=== PATIENT | female | born 1975 | race Caucasian/White ===

== ENCOUNTER → 2020-12-05 12:40 | Outpatient (CLI) | payer OTHER, SELFPAY ==
--- NOTE | ~2020-12-05 | MM_ITS ---
EXAMINATION: MM screening brennon BI w cesar HISTORY: Screening TECHNIQUE: Craniocaudal and mediolateral oblique 3-D tomosynthesis images were obtained and synthetic 2-D images were generated. CAD analysis was submitted and interpreted. COMPARISON: Comparison to multiple prior studies sequentially, with oldest reviewed study dated 08/29. BREAST PARENCHYMAL COMPOSITION: The breasts are heterogeneously dense, which may obscure small masses . FINDINGS: There is no evidence of suspicious mass, calcification, or architectural distortion to sugg est malignancy in either breast. There has been no suspicious interval change. IMPRESSION: 1. No mammographic evidence of malignancy. 2. Recommend routine screening mammography in one year. BI-RADS Category 1: Negative Reviewed, dictated and finalized at location A.
== END ==
PROVIDERS: Visit Provider Obstetrics & Gynecology
DX: Z12.31 Encounter for screening mammogram for malignant neoplasm of breast (principal)
CPT/HCPCS: 77063; 77067

== ENCOUNTER 2021-08-29 15:34 | Outpatient (CLI) | payer OTHER, SELFPAY | END 2021-08-29 15:35 | disposition home or self-care (01) | PROVIDERS: PCP Family Medicine; Visit Provider Obstetrics & Gynecology | DX: Z01.812 Encounter for preprocedural laboratory examination (principal); D21.9 Benign neoplasm of connective and other soft tissue, unspecified; N92.0 Excessive and frequent menstruation with regular cycle; N93.9 Abnormal uterine and vaginal bleeding, unspecified | CPT/HCPCS: 36415; 86850; 86900; 86901; 87086 ==

== ENCOUNTER 2021-09-04 00:31 | Day surgery (SDC) | payer OTHER, SELFPAY ==
[2021-08-24 14:16] VITALS: BMI 24.3
--- NOTE | 2021-08-24 14:24 | PC.NURSE ---
Report to the Outpatient Waiting Room, entrance under the green pavilion located off [facility], at time _0900_ on date _09-04-2021_. OR Time: _1100_. - You and your visitor will be asked a series of questions to screen for COVID 19 for your protection. - A mask is required within the hospital. Preoperative COVID Testing Requirements: No COVID Test needed if: (proof is required; if not received patient will have Rapid Test prior to entry) - Patient has received COVID Vaccine at least 14 days prior to procedure date or - Patient has positive COVID test result within last 90 days of surgery date. COVID Test needed if above criteria is not met If not COVID vaccinated a COVID test must be conducted within 72 hours of surgery and patient is asked to isolate self from time of testing until procedure. You will go to the [email or web address] Testing Site for your COVID testing. The [email or web address] Testing site is located at the corner of [address] [facility]. You will only be called if COVID results are positive and your surgeon may reschedule your elective surgery date. Patients may have clear liquids (water, carbonated beverages, clear teas, apple juice) until 3 hours prior to surgery with a maximum of 20 ounces. - No food from midnight until time of surgery - Infants may have breast milk until 4 hours before surgery, formula 6 hours prior to surgery. - Children will be allowed to drink immediately following surgery. If applicable, please bring a bottle or sippy cup to assist with drinking. Juice, water, soda, and popsicles are readily available. For infants on formula, please bring formula the day of surgery. Pacifiers are allowed. Take the following medications with a SIP of water the morning of surgery: Medications to discontinue per physician Date to take last dose Please no make-up, nail sao tomean, hairspray, perfume, deodorant, or body powder the day of surgery. No jewelry (including any body piercings) or valuables the day of surgery, leave them at home. Please take a shower or bath the night before, or the morning of, surgery with an antibacterial soap. Wear comfortable, loose fitting clothing. Children are encouraged to wear pajamas. - Jewelry must be removed prior to entering the operating room. Rings and piercings that are not removed may be cut off. - The hospital will not accept responsibility for valuables. - Please leave all valuables, including medications, at home the day of surgery. If you are going home after surgery, a licensed rail car driver must drive you home. - NO public transportation without another adult. - We recommend that an adult stay with you for 24 hours following discharge. - We also recommend that you do not drive, make important decision, drink alcoholic beverages, or take any drugs that were not prescribed by your health care provider for at least 24 hours after your discharge time. For Pediatric surgeries, we recommend two adults accompany the child home (only one inside the building at this time). One visitor will be allowed to accompany the patient into the hospital. Patients visitor will be instructed to remain with patient at all times or leave the building. We will allow the visitor to come back to the postoperative area when patient is ready. Follow any additional instructions given to you from your surgeon. Telephone instructions given to ___Patient and asked if any additional questions and then verbalized understanding. Patient advised to call surgeon office or pre surgery nurse liaison [phone] if any additional questions.
--- NOTE | 2021-09-03 07:44 | PM.IMHP ---
H&P: HPI History of Present Illness Date/Time: 09/03/21 07:44 46yo undergoing hysterectomy for fibroids. Also notes JACKSON Chief Complaint: JACKSON Review of Systems Review of Systems: All systems reviewed & are unremarkable except as noted in HPI and below PMFSH Past Medical History Medical History BMI 23.0-23.9, adult Family History Family History Father Hypertension Malignant neoplasm of prostate Grandparent Family history of type 2 diabetes mellitus Other Diabetes mellitus Family history of cardiovascular disease Social History Social History Smoking status: Never smoker Alcohol intake: current Substance use: never Substance use type: does not use Spiritual care concerns: No Meds Home Medications and Allergies Home Medications Medication Instructions Recorded Confirmed Type progesterone micronized 200 mg PO DAILY 08/24/21 08/24/21 History Allergies Allergy/AdvReac Type Severity Reaction Status Date / Time No Known Allergies Allergy Verified 08/24/21 14:16 Exam Narrative: NAD A+O x3 normal breathing + urethral mobility Assessment and Plan Assessment and plan (1) JACKSON (stress urinary incontinence, female): Code(s): N39.3 - Stress incontinence (female) (male) Status: Acute Assessment and Plan: urethral sling
[2021-09-04] VITALS (12 sets, daily range): BP systolic 78–119; BP diastolic 44–81; PULSE 54–81; RESP 12–19; TEMP 36.2–37.2; O2SAT 94–100
--- NOTE | 2021-09-04 07:09 | WPDHPUPDATE1 ---
History and Physical Update Update Date/Time: 09/04/21 07:09 History and Physical has been reviewed, including an updated exam of the patient. There are NO changes in the patient's condition. Risks, benefits, and alternatives have been discussed and questions answered. Patient agrees to proceed with procedure.
[2021-09-04] MEDS: ACETAMINOPHEN 500 MG TABLET 1000 MG PO (09:50)
[2021-09-04] MEDS: LACTATED RINGERS 1,000 ML 30 ML IV CONT ×2 (10:00→14:59)
[2021-09-04] MEDS: KETOROLAC 15 MG/ML VIAL (*BKC) IV PUSH (10:25)
--- NOTE | 2021-09-04 10:25 | P.PNAN_ITS ---
Anes - Initial Pre Proc Eval Procedure: Operation Date: 09/04/21 11:00 Proposed Procedures p Total Laparoscopic Hysterectomy with Bilateral Salpingo-Oophorectomy - Phoenix Fields MD s Urethral Sling - Tani Pandey MD Date/Time: 09/04/21 10:25 Surgeon: Phoenix Fields MD Pre Op Diagnosis: uterine leiomyoma, stress incontinence Patient Data Age: 46 Gender: F Height: 1.68 m Weight: 67.8 kg Last Vital Signs Temp 36.2 C L 09/04/21 10:20 Pulse 71 09/04/21 10:20 Resp 16 09/04/21 10:20 BP 119/52 L 09/04/21 10:20 Pulse Ox 100 09/04/21 10:20 Allergies Allergy/AdvReac Type Severity Reaction Status Date / Time No Known Allergies Allergy Verified 09/04/21 09:25 Home Medications Medication Instructions Recorded Confirmed Type progesterone micronized 200 mg PO DAILY 08/24/21 09/04/21 History Patient hx anesthesia problems: none Family hx anesthesia problems: none Results Review: All pre-operative results and documents have been reviewed as part of the pre-operative evaluation. FOR[facility]LY [facility] Past Medical History Medical History BMI 23.0-23.9, adult Family History Family History Father Hypertension Malignant neoplasm of prostate Grandparent Family history of type 2 diabetes mellitus Other Diabetes mellitus Family history of cardiovascular disease Social History Social History Smoking status: Never smoker Alcohol intake: current Substance use: never Substance use type: does not use Living arrangements: with family Spiritual care concerns: No Anes - Eval Final PreProcedure Day of Procedure 09/04/21 10:25 Patient weight: normal Heart: regular rate and rhythm Lungs: clear to auscultation and normal air movement Airway: Mallampati scale class II Neurological: alert and oriented Last oral intake: >/= 8 hours ASA classification: II Emergent: no Anesthetic plan: proceed Anesthesia type and monitoring: general ETT Results Review: All pre-operative results and documents have been reviewed as part of the pre-operative evaluation. Informed Consent: The patient's anesthetic plan and its attendant risks and benefits were discussed with the patient/family/POA. Questions were solicited and answers provided to the satisfaction of the patient/family/POA.
--- NOTE | 2021-09-04 10:54 | WPDHPUPDATE1 ---
History and Physical Update Update Date/Time: 09/04/21 10:54 History and Physical has been reviewed, including an updated exam of the patient. There are NO changes in the patient's condition. Risks, benefits, and alternatives have been discussed and questions answered. Patient agrees to proceed with procedure.
[2021-09-04] MEDS: SCOPOLAMINE 1.5 MG PATCH TRANSDERM (11:41)
[2021-09-04] MEDS: ceFAZolin 2 GM/D5W 50 ML 2 GM/50 ML BAG IVPB (11:43)
--- NOTE | 2021-09-04 13:58 | W.PM.PROC2 ---
Procedure Note - Detailed Date of Procedure 09/04/21 Pre-op Diagnosis uterine leiomyoma, stress incontinence Post-op Diagnosis Same Procedure Performed Total laparoscopic hysterectomy and bilateral salpingo-oophorectomy. Surgeon Phoenix Fields MD Anesthesia General Findings 15 cm uterus, large myomas, normal appearing tubes and ovaries, normal vulva, vagina, cervix. Description of Procedure This patient was taken to the operating room. She was prepped and draped in the dorsal lithotomy position after induction of general anesthesia. The uterine manipulator and Cristy cup were placed. This was done with a speculum and tenaculum. The speculum was placed. The cervix was grasped with a tenaculum. The stay sutures were placed at 3 and 9:00 a.m.. The stay sutures of 0 Vicryl were brought through the appropriately sized Cristy cup. The tip of the ZENA manipulator was placed in the intrauterine cavity. The cup was slid into place around the cervix and into the fornices. It was locked into place. The sutures were then wrapped around the handle and tied under tension. A 5 mm skin incision was made in the left upper quadrant the abdomen. A 5 mm trocar was inserted into the intrauterine cavity under direct visualization of the scope. Pneumoperitoneum was achieved. A left lower quadrant 11 mm incision was made with scalpel. An 11 mm trocar was inserted into the anterior abdominal cavity under direct visualization the scope. A 5 mm infraumbilical incision was made with a scalpel and a 5 mm trocar was inserted the intra-abdominal cavity under direct visualization of the scope. Bilateral ureteral lysis was performed. This was done from the pelvic brim down to the uterine artery. This was done with careful dissection using sharp and blunt dissection. The infundibulopelvic ligaments were isolated after identification of the ureters bilaterally. These infundibulopelvic ligaments were cauterized and transected with LigaSure cautery. The para ovarian tissue was cauterized and transected with LigaSure cautery bilaterally. Moving around the ovary into the broad ligament the tissue was cauterized transected with LigaSure cautery. The round ligaments were cauterized transected with LigaSure cautery this was all done in a bilateral fashion. In a stepwise fashion along the lateral aspects of the uterus the round ligament and broad ligaments were cauterized transected down to the level of the uterine arteries. A bladder flap was created in the bladder was moved distally to the end of the cervix and over the Cristy cup. The bilateral uterine arteries were cauterized and transected. Colpotomy was then performed. In a circumferential fashion the vagina was transected using unipolar cautery. The incision was made down on the Cristy cup. a 4th trocar was placed in the right lower quadrant. This was placed through a 5 mm skin incision made with scalpel. It was done under direct visualization the scope. This site was used to manipulate the uterus and bifurcate the uterus. The removed piece of the uterus from the right side was then cut also. A fibroid was removed from it. These too loose pieces were then tagged with sutures. Surgical clips were placed on the sutures in the surgical clipped sutures were placed in the vagina. The uterus, cervix, fallopian tubes , fibroids and ovaries were taken out through the vagina. A pneumo occluder was placed in the vagina. The vaginal cuff was closed with a 0 V lock suture in a running fashion. The pelvis was irrigated with copious amounts antibiotic irrigation. The ureters were again examined and found to be intact and flowing freely under the uterine arteries into the bladder. The bladder was intact. It was examined directly. The vagina was irrigated with Betadine solution after removal of the Pneumo occluder. The patient was taken to recovery room. She was stable condition. Sponge lap and needle counts were correct x2. Drains
--- NOTE | 2021-09-04 14:31 | W.PM.PROC2 ---
Procedure Note - Detailed Date of Procedure 09/04/21 Pre-op Diagnosis stress incontinence Post-op Diagnosis Same Procedure Performed mid urethral sling cystoscopy Surgeon Tani Pandey MD Indications This is a female with confirm stress urinary incontinence. She desires surgical correction. She understands the risks of bleeding, infection, injury to the urinary tract, vaginal mesh extrusion, urinary tract mesh erosion, obstructive voiding requiring a secondary procedure, hip and leg pain, dyspareunia, inability to improve overactive bladder symptoms. She agrees to proceed. She is doing the surgery in conjunction with a hysterectomy for fibroids Description of Procedure She was correctly identified. Informed consent obtained. She was brought the operating room. She was given appropriate anesthesia. She was given appropriate perioperative antibiotics. I came into the room with occlusion of her hysterectomy. A time-out performed. She was re-prepped in a sterile fashion. I marked out the site of the inner thigh incisions. I anesthetized the skin and made those incisions. I anesthetized the anterior vaginal wall over the mid urethra. I made a 1 cm incision. I dissected out laterally taking great care not to injure the refilled vaginal wall. I passed the helical trocars. First on the left. Then on the right. I did this from the thigh incision towards the vaginal incision. The sling was connected to the trocars and brought out through the thigh incision. I tensioned the sling appropriately. I cut and the plastic sheaths. I then closed the incision with 2 0 Vicryl. On cystoscopy there is no tumors or surgical artifact. There was no surgical artifact in the urethra. Both ureters were seen to excrete clear yellow urine. I cut the excess sling material. Close incisions with glue. She was awakened and transferred to the PACU in stable condition. Implants Urethral sling Estimated Blood Loss -125.0 Drains No Packing No Pathology None sent Complications No immediate complications Condition Stable Disposition PACU
--- NOTE | 2021-09-04 15:33 | SUR.PHASEI ---
Discussed urine output with Dr Quiñonez who said to finish 2nd bag of fluid.
--- NOTE | 2021-09-04 16:20 | PC.NURSE ---
This patient, Danielle Ross, was received from PACU per bed to room 288. Patient/family oriented to unit policies and routines
[2021-09-04] MEDS: DEXTROSE 5%/0.45% SOD CHL 1,000 ML 125 ML IV CONT (17:09)
[2021-09-05 03:35] VITALS: BP 104/54; PULSE 74; RESP 16; TEMP 37; O2SAT 96
[2021-09-05] MEDS: IBUPROFEN 600 MG TABLET PO (03:42)
--- NOTE | 2021-09-05 07:39 | PM.GYNPNOP ---
ACCOUNTING SUPPORT SPECIALIST - A/P Postoperative Procedures: Procedures Operation Date: 09/04/21 11:00 Actual Procedure Side Surgeon p Total Laparoscopic Hysterectomy with Bilateral Salpingo-Oophorectomy, IUD Removal Bilateral Phoenix Fields MD s Urethral Sling Tani Pandey MD Postoperative day: 1 Postoperative status: doing well Postoperative plan: see orders Time Spent With Patient Time: Total time spent is greater than 50% in coordination of care (as documented) at patient's floor/unit and/or counseling patient: Time with patient: less than 15 minutes ACCOUNTING SUPPORT SPECIALIST- PN:Subj Post-Op Subjective Date/time seen: 09/05/21 07:39 Subjective: patient reports feeling better, patient has no complaints and pain is well controlled Exam Const: General: healthy appearing, comfortable and no acute distress Resp: Auscultation: clear to auscultation bilaterally, no rales, no rhonchi and no wheezes Cardio: Rate: regular rate Heart sounds: no click, no murmurs and no rubs GI: Inspection: non-distended Auscultation: normal bowel sounds Extrem: General: normal to inspection, no pedal edema and no calf tenderness ACCOUNTING SUPPORT SPECIALIST - PN: Obj Data Vital Signs Vital Signs: Vital Signs - 24 hr 09/04/21 10:20 09/04/21 14:25 09/04/21 14:35 Temperature 97.2 F L 98.3 F Pulse Rate 71 54 L 61 Respiratory Rate 16 15 13 Blood Pressure 119/52 L 78/44 L 86/49 L Pulse Oximetry 100 100 98 09/04/21 14:50 09/04/21 15:05 09/04/21 15:21 Temperature Pulse Rate 63 59 L 59 L Respiratory Rate 16 12 15 Blood Pressure 108/73 112/61 107/62 Pulse Oximetry 100 95 99 09/04/21 15:35 09/04/21 15:50 09/04/21 16:05 Temperature Pulse Rate 66 63 61 Respiratory Rate 19 17 16 Blood Pressure 85/66 L 105/81 113/69 Pulse Oximetry 94 97 94 09/04/21 16:25 09/04/21 19:15 09/04/21 23:40 Temperature 97.6 F 98.9 F 98.7 F Pulse Rate 61 81 65 Respiratory Rate 16 16 16 Blood Pressure 112/51 L 109/56 L 100/53 L Pulse Oximetry 95 100 96 09/05/21 03:35 Temperature 98.6 F Pulse Rate 74 Respiratory Rate 16 Blood Pressure 104/54 L Pulse Oximetry 96 Intake/Output Intake/Output: Intake & Output 09/02/21 09/03/21 09/04/21 09/05/21 23:59 23:59 23:59 23:59 Intake Total 1350 1500 Output Total 1060 700 Balance 290 800 Meds/Results Medications: Active Medications Generic Name Dose Route Start Last Admin Trade Name Freq PRN Reason Stop Dose Admin Hydrocodone Bitart/Acetaminophen 1 tab 09/04/21 16:10 Hydrocodone/Acetaminophen (*Crx) 5-325 Mg Tablet PO Q3H PRN Pain Rated 5 or Less Hydrocodone Bitart/Acetaminophen 1 tab 09/04/21 16:10 Hydrocodone/Acetaminophen (*Crx) 10-325 Mg Tablet PO Q3H PRN Pain Rated 6 or Greater Dextrose/Sodium Chloride 1,000 mls @ 125 mls/hr 09/04/21 16:10 09/05/21 03:21 Dextrose 5% Sodium Chloride 0.45% IV CONT Not Given .Q8H MADELINE Ibuprofen 600 mg 09/04/21 16:10 09/05/21 03:42 Ibuprofen 600 Mg Tablet PO 600 mg Q6H PRN Administration Cramping Ketorolac Tromethamine 30 mg 09/04/21 16:10 Ketorolac 30 Mg/Ml Vial (*Bkc) IV PUSH 09/09/21 16:09 Q6H PRN Pain Rated 4-6 Naloxone HCl 0.1 mg 09/04/21 16:10 Naloxone Hcl 0.4 Mg/Ml Vial IV PUSH Q2M PRN Respiratory rate less than 10 Ondansetron HCl 4 mg 09/04/21 16:10 Ondansetron Inj 4 Mg/2 Ml Vial IV PUSH Q6H PRN Nausea And Vomiting
[2021-09-05 08:00] VITALS: BP 96/57; PULSE 69; RESP 18; TEMP 36.6; O2SAT 100
--- NOTE | 2021-09-05 09:24 | PC.NURSE ---
Discharge instructions given to pt. per Dr. Fields. Pt. states she understood. States she has appt. for follow up with Dr. Pandey scheduled. No questions or concerns voiced. at side.
--- NOTE | 2021-09-05 09:58 | WPDANESPN ---
Anes - Prog Note Post-Op Date/Time: 09/05/21 09:58 Cardiovascular status: normal Respiratory status: normal Airway patency: baseline Mental status: baseline Post-Op hydration status: normal Vital Signs: Last Vital Signs Temp 97.9 F 09/05/21 08:00 Pulse 69 09/05/21 08:00 Resp 18 09/05/21 08:00 BP 96/57 L 09/05/21 08:00 Pulse Ox 100 09/05/21 08:00 Pain Score (VAS): 0 I/O: Intake & Output 09/04/21 09/05/21 09/05/21 23:59 07:59 15:59 Intake Total 1000 1500 1000 Output Total 1050 700 600 Balance -50 800 400 Post-procedural complaints: none Patient Feedback: Patient satisfied with anesthetic care.
== END 2021-09-05 10:28 | disposition home or self-care (01) ==
LOC: ANHSURGERY 11:41 → ANHOB2 16:14
PROVIDERS: Urology; PCP Family Medicine; Visit Provider Obstetrics & Gynecology
PROC: 0UT9FZZ Resection of Uterus, Via Natural or Artificial Opening With Percutaneous Endoscopic Assistance (ICD-10-PCS; CPT 58573; principal; 2021-09-04 11:00)
PROC: (CPT 57288; 2021-09-04 11:00)
DX: N39.3 Stress incontinence (female) (male) (principal); D25.1 Intramural leiomyoma of uterus; D25.2 Subserosal leiomyoma of uterus; N80.0 Endometriosis of uterus; N83.02 Follicular cyst of left ovary; N83.01 Follicular cyst of right ovary; Z90.49 Acquired absence of other specified parts of digestive tract
CPT/HCPCS: 57288; 58573; 36415; 86850; 86900; 86901; 87086; 88307; 99199; A9270; C1771; J0690; J1100; J1885; J2250; J2270; J2405; J2704; J2710; J3010; J7030; J7120

== ENCOUNTER 2021-12-06 01:27 | Day surgery (SDC) | payer OTHER, SELFPAY ==
[2021-11-20 15:57] VITALS: BMI 22.7
[2021-12-06 09:30] VITALS: BP 99/71; PULSE 78; RESP 20; TEMP 35.9; O2SAT 99; BMI 21.9
[2021-12-06] MEDS: LACTATED RINGERS 1,000 ML 150 ML IV CONT (09:36)
--- NOTE | 2021-12-06 10:32 | PM.HPGS ---
History of Present Illness History of Present Illness Consent: Risks, benefits, and alternatives have been discussed and questions answered. Patient agrees to proceed with procedure. Chief complaint: neoplasm screening Narrative: Danielle Ross is a 46 year old female here for first screening colonoscopy Review of Systems Constitutional: Constitutional: Denies headache(s) and Denies weakness Eyes: Eyes: Denies blurry vision ENT: Reports Normal hearing present, Denies headache(s) and Denies neck pain Cardiovascular: Cardiovascular: Denies chest pain and Denies dyspnea Respiratory: Respiratory: Denies dyspnea Gastrointestinal: Gastrointestinal: Reports no additional gastrointestinal complaints Genitourinary: Genitourinary: Denies dysuria Musculoskeletal: Musculoskeletal: Denies neck pain Integumentary/Breasts: Skin/Breast: Denies dry skin Neurologic: Reports Normal hearing present, Denies headache(s) and Denies weakness Psychiatric: Psychiatric: Denies anxiety Endocrine: Endocrine: Denies change in body appearance Hematologic/Lymphatic: Hematologic/Lymphatic: Denies easy bleeding Allergic/Immunologic: Allergic/Immunologic: Denies urticaria PMF Past Medical History Medical History BMI 22.0-22.9, adult BMI 23.0-23.9, adult Surgical History Surgical History H/O: hysterectomy Status post creation of urethral sling by suprapubic approach Family History Family History Father Hypertension Malignant neoplasm of prostate Grandparent Family history of type 2 diabetes mellitus Other Diabetes mellitus Family history of cardiovascular disease Social History Social History Smoking status: Never smoker Alcohol intake: current Alcohol use details: on occassion Substance use: never Substance use type: does not use Living arrangements: with family Spiritual care concerns: No Meds Home Medications and Allergies Home Medications Medication Instructions Recorded Confirmed Type estradiol 1 mg tablet 1 mg PO DAILY 09/28/21 11/20/21 History Allergies Allergy/AdvReac Type Severity Reaction Status Date / Time No Known Allergies Allergy Verified 12/06/21 09:29 Vital Signs Vital Signs - 24 hr 12/06/21 09:30 Temperature 96.7 F L Pulse Rate 78 Respiratory Rate 20 Blood Pressure 99/71 L Pulse Oximetry 99 Oxygen Delivery Room Air Exam Const: General: comfortable and no acute distress HENMT: General nose exam: Normal nares present Eyes: General: appearance normal, both eyes and all related structures Neck: Neck: no JVD Resp: Auscultation: clear to auscultation bilaterally Cardio: Rate: regular rate Rhythm: regular rhythm GI: Inspection: non-distended GI Palp: Yes Soft to palpation Skin: General skin exam: normal color Neuro: General: gait normal Speech: normal speech Extrem: General: normal to inspection Psych: Mental Status: mental status grossly normal Assessment and Plan Assessment and plan (1) Screening for malignant neoplasm of colon: Code(s): Z12.11 - Encounter for screening for malignant neoplasm of colon Status: Acute Assessment and Plan: colonoscopy
--- NOTE | 2021-12-06 10:36 | WPDANESEPPF ---
Anes - Initial Pre Proc Eval Procedure: Operation Date: 12/06/21 10:45 Proposed Procedures p Screening Colonoscopy - Pavel Hyde MD Date/Time: 12/06/21 10:36 Surgeon: Pavel Hyde MD Pre Op Diagnosis: neoplasm screening Patient Data Age: 46 Gender: F Height: 1.68 m Weight: 61.7 kg Last Vital Signs Temp 96.7 F L 12/06/21 09:30 Pulse 78 12/06/21 09:30 Resp 20 12/06/21 09:30 BP 99/71 L 12/06/21 09:30 Pulse Ox 99 12/06/21 09:30 O2 Del Method Room Air 12/06/21 09:30 Allergies Allergy/AdvReac Type Severity Reaction Status Date / Time No Known Allergies Allergy Verified 12/06/21 09:29 Home Medications Medication Instructions Recorded Confirmed Type estradiol 1 mg tablet 1 mg PO DAILY 09/28/21 11/20/21 History Patient hx anesthesia problems: none Family hx anesthesia problems: none Results Review: All pre-operative results and documents have been reviewed as part of the pre-operative evaluation. FOR[facility], [facility] Past Medical History Medical History BMI 22.0-22.9, adult BMI 23.0-23.9, adult Surgical History Surgical History H/O: hysterectomy Status post creation of urethral sling by suprapubic approach Family History Family History Father Hypertension Malignant neoplasm of prostate Grandparent Family history of type 2 diabetes mellitus Other Diabetes mellitus Family history of cardiovascular disease Social History Social History Smoking status: Never smoker Alcohol intake: current Alcohol use details: on occassion Substance use: never Substance use type: does not use Living arrangements: with family Spiritual care concerns: No Anes - Eval Final PreProcedure Day of Procedure 12/06/21 10:36 Patient weight: normal Heart: regular rate and rhythm Lungs: clear to auscultation Airway: Mallampati scale class II Neurological: alert and oriented Last oral intake: >/= 8 hours ASA classification: I Emergent: no Anesthetic plan: proceed Anesthesia type and monitoring: general GIVS and standard monitoring Results Review: All pre-operative results and documents have been reviewed as part of the pre-operative evaluation. Informed Consent: The patient's anesthetic plan and its attendant risks and benefits were discussed with the patient/family/POA. Questions were solicited and answers provided to the satisfaction of the patient/family/POA.
[2021-12-06 10:57] VITALS: BP 86/59; PULSE 70; RESP 23; O2SAT 100
[2021-12-06 11:07] VITALS: BP 90/62; PULSE 62; RESP 19; O2SAT 100
[2021-12-06 11:17] VITALS: BP 98/55; PULSE 56; RESP 15; O2SAT 100
== END 2021-12-06 11:20 | disposition home or self-care (01) ==
PROVIDERS: PCP Family Medicine; Visit Provider Internal Medicine Gastroenterology
PROC: 0DJD8ZZ Inspection of Lower Intestinal Tract, Via Natural or Artificial Opening Endoscopic (ICD-10-PCS; CPT 45378; principal; 2021-12-06 10:45)
DX: Z12.11 Encounter for screening for malignant neoplasm of colon (principal); K57.30 Diverticulosis of large intestine without perforation or abscess without bleeding; K64.8 Other hemorrhoids
CPT/HCPCS: 45378; J2001; J2704; J7120

== ENCOUNTER → 2022-02-09 16:21 | Outpatient (CLI) | payer OTHER, SELFPAY ==
--- NOTE | ~2022-02-09 | MM_ITS ---
EXAMINATION: MM screening [facility] w [facility] HISTORY: Screening mammogram TECHNIQUE: Craniocaudal and mediolateral oblique 3-D tomosynthesis images were obtained and synthetic 2-D images were generated. Bilateral rotated lateral CC views. CAD analysis was submitted and interp reted. COMPARISON: 12/05/2020, 11/20/2018, 09/13/2017 bilateral screening mammogram examinations BREAST PARENCHYMAL COMPOSITION: The breasts are heterogeneously dense, which may obscure small masses . FINDINGS: There is no evidence of suspicious mass, calcification, or architectural distortion to sugg est malignancy in either breast. There has been no suspicious interval change. IMPRESSION: 1. No mammographic evidence of malignancy. 2. Recommend routine screening mammography in one year. BI-RADS Category 1: Negative Reviewed, dictated and finalized at location B.
== END ==
PROVIDERS: PCP Nurse Practitioner Obstetrics & Gynecology; Visit Provider Nurse Practitioner Obstetrics & Gynecology
DX: Z12.31 Encounter for screening mammogram for malignant neoplasm of breast (principal)
CPT/HCPCS: 77063; 77067

== ENCOUNTER → 2023-02-13 16:16 | Outpatient (CLI) | payer OTHER, SELFPAY ==
--- NOTE | ~2023-02-13 | MM_ITS ---
EXAMINATION: MM screening [facility] w [facility] HISTORY: Screening mammogram TECHNIQUE: Craniocaudal and mediolateral oblique 3-D tomosynthesis images were obtained and synthetic 2-D images were generated. Rotated lateral craniocaudal view of right breast. CAD analysis was submi tted and interpreted. COMPARISON: 02/09/2022, 12/05/2020, 11/20/2018 bilateral screening mammogram examinations BREAST PARENCHYMAL COMPOSITION: There are scattered areas of fibroglandular density. FINDINGS: There is no evidence of suspicious mass, calcification, or architectural distortion to sugg est malignancy in either breast. There has been no suspicious interval change. IMPRESSION: 1. No mammographic evidence of malignancy. 2. Recommend routine screening mammography in one year. BI-RADS Category 1: Negative Reviewed, dictated and finalized at location A.
== END ==
PROVIDERS: PCP Nurse Practitioner Obstetrics & Gynecology; Visit Provider Nurse Practitioner Obstetrics & Gynecology
DX: Z12.31 Encounter for screening mammogram for malignant neoplasm of breast (principal)
CPT/HCPCS: 77063; 77067

== ENCOUNTER 2023-11-25 07:36 | Outpatient (CLI) | payer OTHER, SELFPAY ==
--- NOTE | ~2023-11-25 | MR_ITS ---
EXAMINATION: MR foot RT wo con DATE: 11/25/2023 08:10 INDICATION: Peroneal tendinitis with right mid and hindfoot pain TECHNIQUE: Magnetic resonance imaging (MRI) of the right but excluding the toes was performed without intravenous contrast. Sequences included sagittal T1-weighted FSE, sagittal fluid sensitive FSE STIR , coronal PD-weighted FS FSE, coronal T1-weighted FSE, axial PD-weighted FS FSE, and axial PD-weighte d FSE. COMPARISON: None FINDINGS: Bone alignment is normal. There is moderate to severe osteoarthritis at the articulation of the navic jeff with the mid and lateral cuneiform and dorsal medial margin of the cuboid with subarticular edema -like signal change at both sides of the joint spaces. Less severe mild osteoarthritis at the first m etatarsophalangeal, subtalar, talonavicular, calcaneocuboid and several of the tarsal metatarsal join ts. Bone marrow signal is otherwise unremarkable with no fracture, stress injury or pathologic marrow replacing process. The Achilles tendon, anterior extensor, medial sided flexor and lateral sided per patiño tendons all appear normal with no evident tendinopathy, tenosynovitis or tear. The deltoid liga ment, spring ligament complex, lateral stabilizing ligaments of the ankle and Lisfranc ligament compl ex are all normal. Intrinsic musculature of the foot is normal. Physiologic amount fluid in the joint space. No bursitis, tenosynovitis or other abnormal fluid collections. IMPRESSION: 1. 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 Reviewed, dictated and finalized at location A. IMPRESSION: 1. Polyarticular osteoarthritis, moderate to severe in the midfoot at the artic ulation of the navicular with the cuboid and mid and lateral cuneiforms and oth erwise mild.
== END 2023-11-25 07:37 ==
LOC: MICIMG 07:38
PROVIDERS: PCP Podiatrist Foot & Ankle Surgery; Visit Provider Podiatrist Foot & Ankle Surgery
DX: M19.071 Primary osteoarthritis, right ankle and foot (principal); M76.71 Peroneal tendinitis, right leg; S84.21XA Injury of cutaneous sensory nerve at lower leg level, right leg, initial encounter; M66.371 Spontaneous rupture of flexor tendons, right ankle and foot
CPT/HCPCS: 73718

== ENCOUNTER 2024-02-17 15:42 | Outpatient (CLI) | payer OTHER, SELFPAY ==
--- NOTE | ~2024-02-17 | MM_ITS ---
EXAMINATION: MM screening [facility] BI w [facility] HISTORY: Screening mammogram TECHNIQUE: Craniocaudal and mediolateral oblique 3-D tomosynthesis images were obtained and synthetic 2-D images were generated. CAD analysis was submitted and interpreted. COMPARISON: 02/13/2023, 02/09/2022, 12/05/2020 BREAST PARENCHYMAL COMPOSITION:Not Dense. There are scattered areas of fibroglandular density. FINDINGS: No suspicious mass, calcification, or architectural distortion are identified in either verna ast to suggest malignancy. There has been no suspicious interval change. IMPRESSION: No mammographic evidence of malignancy. Recommend routine screening mammography in one year. BI-RADS Category 1: Negative Reviewed, dictated and finalized at location .
== END 2024-02-17 15:43 | disposition home or self-care (01) ==
LOC: MICIMG 15:43
PROVIDERS: PCP Obstetrics & Gynecology; Visit Provider Obstetrics & Gynecology
DX: Z12.31 Encounter for screening mammogram for malignant neoplasm of breast (principal)
CPT/HCPCS: 77063; 77067

== ENCOUNTER 2025-05-31 10:58 | Outpatient (CLI) | payer OTHER, SELFPAY ==
--- NOTE | ~2025-05-31 | MR_ITS ---
EXAMINATION: MR foot LT wo con DATE: 05/31/2025 13:25 INDICATION: Spontaneous rupture flexor tendon at the left foot TECHNIQUE: Magnetic resonance imaging (MRI) of the left mid/hindfoot and ankle was performed without intravenous contrast. Sequences included sagittal T1- weighted FSE, sagittal fluid sensitive FSE STIR, coronal PD-weighted FS FSE, coronal T1-weighted FSE, axial PD-weighted FS FSE, and axial PD-weighted FSE. COMPARISON: None FINDINGS: Medial ankle ligaments: Deep and superficial deltoid ligaments as well as the spring ligament are normal. Lateral ankle ligaments: The anterior and posterior inferior tibiofibular ligaments are normal. The anterior talofibular, calcaneofibular and posterior talofibular ligaments are normal. Tendons: Achilles tendon is normal. The peroneus longus and brevis tendons are normal. The tibialis anterior and extensor hallucis longus and extensor digitorum longus tendons are normal. The tibialis posterior, flexor digitorum longus and flexor hallucis longus tendons are normal. Plantar fascia: Deep plantar aponeurosis appears normal with tiny enthesophyte at its calcaneal origin. There is however prominent muscular edema along the myotendinous junction of the flexor digitorum brevis and abductor digiti minimi muscles without discrete fluid signal intensity tear defect consistent with low-grade muscle strains. Bones/other: Bone alignment is normal. Normal marrow signal throughout with no fracture, reactive edema or pathologic marrow replacing process. Minimal to mild polyarticular osteoarthritis in the mid and hindfoot Fluid: Physiologic amount fluid in the joint space. No tenosynovitis, bursitis or other abnormal fluid collections. IMPRESSION: 1. Low-grade muscle strain along the myotendinous junction between the plantar aponeurosis and the flexor digitorum brevis and abductor digit minimi muscles. Reviewed, dictated and finalized at location A. BIOLOGY
== END 2025-05-31 10:59 | disposition home or self-care (01) ==
PROVIDERS: PCP Podiatrist Foot & Ankle Surgery; Visit Provider Podiatrist Foot & Ankle Surgery
DX: M66.372 Spontaneous rupture of flexor tendons, left ankle and foot (principal)
CPT/HCPCS: 73718